=== PATIENT | female | born 1950 | race Caucasian/White ===

== ENCOUNTER → 2020-10-27 12:18 | Outpatient (CLI) | payer MEDICARE, BC, SELFPAY ==
--- NOTE | ~2020-10-27 | MM_ITS ---
EXAMINATION: MM screening [facility] BI w nacho HISTORY: Screening mammogram TECHNIQUE: Craniocaudal and mediolateral oblique 3-D tomosynthesis images were obtained and synthetic 2-D images were generated. CAD analysis was submitted and interpreted. COMPARISON: 05/26/2017, 01/06/1716, 01/15/2014 BREAST PARENCHYMAL COMPOSITION: The breasts are almost entirely fatty. FINDINGS: RIGHT BREAST: There is a mass in the middle third of the lower-outer breast 5 cm from the nipple. LEFT BREAST: There is no evidence of suspicious mass, calcification, or architectural distortion to s uggest malignancy. There has been no significant interval change. IMPRESSION: 1. Right breast mass. 2. Additional mammographic views and possible breast ultrasound are recommended. BI-RADS Category 0: Incomplete: Needs additional imaging evaluation. Reviewed, dictated and finalized at location A. IMPRESSION: 1. Right breast mass. 2. Additional mammographic views and possible breast ultrasound are recommended . BI-RADS Category 0: Incomplete: Needs additional imaging evaluation.
== END ==
PROVIDERS: PCP Internal Medicine; Visit Provider Internal Medicine
DX: Z12.31 Encounter for screening mammogram for malignant neoplasm of breast (principal); R92.8 Other abnormal and inconclusive findings on diagnostic imaging of breast
CPT/HCPCS: 77063; 77067

== ENCOUNTER → 2020-11-23 09:12 | Outpatient (CLI) | payer MEDICARE, BC, SELFPAY ==
--- NOTE | ~2020-11-23 | MMUS_ITS ---
EXAMINATION: MM diagnostic mammo unilat RT, US breast RT limited HISTORY: Right breast mass in middle third of lower outer breast 5 cm from nipple TECHNIQUE: Additional 3-D tomosynthesis images of the right breast were performed and synthetic 2-D i mages were generated. CAD analysis was submitted and interpreted. High resolution lower outer right b reast ultrasound was performed. COMPARISON: 10/27/2020, 05/26/2017, 01/13/2016 bilateral digital screening mammogram examinations FINDINGS: MAMMOGRAPHIC FINDINGS: A circumscribed up to 2.8 x 5.9 mm low-density opacity is noted at mid depth in the lower outer right breast. ULTRASOUND: 7:00 3 cm from nipple: There is a tubular sonolucency with circumscribed margins, without internal va scularity or suspicious shadowing. No suspicious mass or shadowing is detected in the lower outer right breast. IMPRESSION: 1. No mammographic evidence of malignancy 2. Routine mammographic screening is recommended. BI-RADS Category 2: Benign finding(s). Reviewed, dictated and finalized at location A. IMPRESSION: 1. No mammographic evidence of malignancy 2. Routine mammographic screening is recommended. BI-RADS Category 2: Benign finding(s).
== END ==
PROVIDERS: PCP Internal Medicine; Visit Provider Internal Medicine
DX: R92.8 Other abnormal and inconclusive findings on diagnostic imaging of breast (principal)
CPT/HCPCS: 76642; 77065

== ENCOUNTER → 2021-04-21 10:09 | Outpatient (CLI) | payer MEDICARE, BC, SELFPAY ==
--- NOTE | ~2021-04-21 | DEXA_ITS ---
Bone Density Report Name: Joseline Pratt Age: 71 Sex: Female Ethnicity: White Date of : 1950 Indication: postmenopausal osteoporosis; parental hip fracture; height loss; Referring Provider: DEVIN, BRI Guthrie Study: Bone densitometry was performed. Exam Date: April 21, 2021 Accession number: [id number] Bone Density: Region BMD T-score Z-score Classification AP Spine (L1-L4) 0.806 -2.2 -0.1 Osteopenia Femoral Neck (Left) 0.668 -1.6 0.1 Osteopenia Total Hip (Left) 0.879 -0.5 0.9 Normal Femoral Neck (Right) 0.659 -1.7 0.0 Osteopenia Total Hip (Right) 0.807 -1.1 0.4 Osteopenia Total Hip Mean 0.843 -0.8 0.7 Normal World Health Organization criteria for BMD impression classify patients as: Normal (T-score at or above -1.0), Osteopenia (T-score between -1.0 and -2.5), or Osteoporosis (T-score at or below -2.5). 10-year Fracture Risk(1): Major Osteoporotic Fracture 17% Hip Fracture 3.1% Reported Risk Factors: [place] (), Neck BMD=0.659, BMI=25.2, parental fracture (1) FRAX(R) Version 3.08. Fracture probability calculated for an untreated patient. Fracture probability may be lower if the patient has received treatment. Previous Exams: Region Exam Age BMD T-score BMD Change BMD Change Date g/cm2 vs Baseline vs Previous AP Spine(L1-L4) 04/21/2021 71 0.806 -2.2 -0.029* 0.089* 11/01/2018 68 0.717 -3.0 -0.118* -0.076* 01/13/2016 65 0.793 -2.3 -0.042* -0.001 01/01/2013 62 0.794 -2.3 -0.041* -0.027* 01/25/2010 59 0.820 -2.1 -0.015 0.006 01/25/2008 57 0.814 -2.1 -0.021 -0.021 01/18/2006 55 0.835 -1.9 Total Hip(Left) 04/21/2021 71 0.879 -0.5 -0.028* 0.007 11/01/2018 68 0.873 -0.6 -0.035* -0.029* 01/13/2016 65 0.902 -0.3 -0.006 -0.052* 01/01/2013 62 0.953 0.1 0.046* 0.116* 01/25/2010 59 0.837 -0.9 -0.070* -0.083* 01/25/2008 57 0.921 -0.2 0.013 0.013 01/18/2006 55 0.907 -0.3 Total Hip(Right) 04/21/2021 71 0.807 -1.1 -0.049* 0.032* 11/01/2018 68 0.776 -1.4 -0.081* -0.079* 01/13/2016 65 0.854 -0.7 -0.002 -0.036* 01/01/2013 62 0.891 -0.4 0.034* 0.085* 01/25/2010 59 0.805 -1.1 -0.051* -0.007 01/25/2008 57 0.813 -1.1 -0.043* -0.043* 01/18/2006 55 0.856 -0.7
== END ==
PROVIDERS: PCP Internal Medicine; Visit Provider Internal Medicine
DX: M81.0 Age-related osteoporosis without current pathological fracture (principal); M85.88 Other specified disorders of bone density and structure, other site; M85.851 Other specified disorders of bone density and structure, right thigh; M85.852 Other specified disorders of bone density and structure, left thigh
CPT/HCPCS: 77080

== ENCOUNTER → 2022-04-05 12:21 | Outpatient (CLI) | payer MEDICARE, BC, SELFPAY ==
--- NOTE | ~2022-04-05 | MM_ITS ---
EXAMINATION: MM screening [facility] BI w nacho HISTORY: Screening TECHNIQUE: Craniocaudal and mediolateral oblique 3-D tomosynthesis images were obtained and synthetic 2-D images were generated. CAD analysis was submitted and interpreted. COMPARISON: No prior mammogram is available for comparison at this institution. BREAST PARENCHYMAL COMPOSITION: Breast composed of scattered areas of fibroglandular density FINDINGS: There is no evidence of suspicious mass, calcification, or architectural distortion to sugg est malignancy in either breast. There has been no suspicious interval change. IMPRESSION: 1. No mammographic evidence of malignancy. 2. Recommend routine screening mammography in one year. BI-RADS Category 1: Negative Reviewed, dictated and finalized at location A.
== END ==
PROVIDERS: PCP Internal Medicine; Visit Provider Internal Medicine
DX: Z12.31 Encounter for screening mammogram for malignant neoplasm of breast (principal)
CPT/HCPCS: 77063; 77067

== ENCOUNTER 2024-08-07 13:29 | Outpatient (CLI) | payer BC, SELFPAY ==
--- NOTE | ~2024-08-07 | MM_ITS ---
EXAMINATION: MM screening [facility] BI w nacho HISTORY: Screening TECHNIQUE: Craniocaudal and mediolateral oblique 3-D tomosynthesis images were obtained and synthetic 2-D images were generated. CAD analysis was submitted and interpreted. COMPARISON: Comparison to multiple prior studies sequentially, with oldest reviewed study dated 01/12. BREAST PARENCHYMAL COMPOSITION: Not dense: There are scattered areas of fibroglandular density. FINDINGS: There is no evidence of suspicious mass, calcification, or architectural distortion to sugg est malignancy in either breast. There has been no suspicious interval change. IMPRESSION: 1. No mammographic evidence of malignancy. 2. Recommend routine screening mammography in one year. BI-RADS Category 1: Negative Reviewed, dictated and finalized at location B. S [employer]
== END 2024-08-07 13:30 | disposition home or self-care (01) ==
PROVIDERS: PCP Internal Medicine; Visit Provider Internal Medicine
DX: Z12.31 Encounter for screening mammogram for malignant neoplasm of breast (principal)
CPT/HCPCS: 77063; 77067

== ENCOUNTER 2025-02-19 09:41 | Outpatient (CLI) | payer MEDICARE, BC, SELFPAY ==
--- OUTSIDE RECORDS SUMMARY | 2010-01-04 03:30 | XMS_ITS | Continuity of Care Document ---
Author Organization [facility] Address [address] [place] [address] Phone Care Team Providers Care Drug Worker Name Role Phone Cleve Carl Unavailable Unavailable Procedures Procedure Date Eye Exam & Treatment Refraction Advance Directives Directive Yes / No Effective Date File Name No Information Encounters Encounter Description Practice Location Reason(s) For Visit Diagnoses Date Provider Providers Copied on Encounter [facility], [address] [place], [place], [id number], [place] tel:[phone] [facility] [place]note 2[place] No Information 0 Siddhartha Cleve. [address] [facility] [facility] [address], [place], [address], [place]. tel:[phone] Family History Family Member Type Diagnosis Age At Onset No Information Payers Payer name Insurance type Covered libertarian ID Authoriza tipito(s) [employer] BL [id number] Social History Type Description Quantity Date Captured Comments Sex Female Smoking Status No Information Chief Complaint And Reason For Visit No Information Reason For Referral Reason For Referral No Information History Of Present Illness Encounter Date Complaint History Of Prese nt Illness No Information Functional Status Date Functional Assessmen t No Information Instructions Date Instruction Additional Infor mation No Information Assessments Type Assessment Date No Information Patient Care Teams Name Effective Dates (start - stop) Status Members No Information
--- NOTE | ~2025-02-19 | DEXA_ITS ---
Bone Density Report Name: GIOVANNI AVALOS Age: 75 Sex: Female Ethnicity: White Date of : 1950 Indication: postmenopausal; screening for osteoporosis; parental hip fracture; height loss; Referring Provider: DEVIN, BRI Guthrie Study: Bone densitometry was performed. Exam Date: February 19, 2025 Accession number: [id number] Bone Density: Region BMD T-score Z-score Classification AP Spine(L1-L4) 0.758 -2.6 -0.3 Osteoporosis Femoral Neck (Left) 0.631 -2.0 0.0 Osteopenia Total Hip (Left) 0.871 -0.6 1.1 Normal Femoral Neck (Right) 0.627 -2.0 0.0 Osteopenia Total Hip (Right) 0.776 -1.4 0.3 Osteopenia Total Hip Mean 0.823 -1.0 0.7 Normal World Health Organization criteria for BMD impression classify patients as: Normal (T-score at or above -1.0), Osteopenia (T-score between -1.0 and -2.5), or Osteoporosis (T-score at or below -2.5). 10-year Fracture Risk: FRAX not reported because: Some T-score for Spine Total or Hip Total or Femoral Neck at or below -2.5 Treated for osteoporosis Clinical Information Provided by Patient: Parent has had a hip fracture Is being treated for osteoporosis Has used the following medications: Fosamax (i.e. alendronate), Calcium Patient maximum height was 63.0 Menopause Age: 52 No regular weight bearing exercise Does not regularly consume dairy products Drinks caffeinated beverages Onset of menses at age 14 Number of children 4 Impression: The patient has osteoporosis, based on the Total Spine T-score. The patient has risk factors, including: parental hip fracture. Discussion: It is important to ask patients whether they are taking their medications and to encourage continued and appropriate compliance with their osteoporosis therapies to reduce fracture risk. It is also important to review their risk factors and encourage appropriate calcium and vitamin D intakes, exercise, fall prevention and other lifestyle measures. Follow-Up: Consider a repeat BMD and Vertebral Fracture Assessment (VFA) exam in 2 years or sooner if medically necessary, to reassess this patient's status. Reported by: LOS on 02/19/2025 10:19:00 AM. Reviewed, dictated and finalized at location A.
--- OUTSIDE RECORDS SUMMARY | 2025-02-19 10:32 | XMS_ITS | Clinical Summary ---
Author Organization [facility] Address [address] [place] [address] Phone Care Team Providers Care Software Support Specialist Name Role Phone Unavailable Primary Care Provider Unavailabl e Social History Tobacco Use Types Packs/Day Years Used Date Smoking Tobacco: Never Assessed Comments Unknown Sex and Gender Information Value Date Recorded Sex Assigned at Not on file Legal Sex Female 11:45 AM CDT Gender Identity Not on file Sexual Orientation Not on file Plan of Treatment Not on file
== END 2025-02-19 09:42 | disposition home or self-care (01) ==
LOC: ANHFOHIMG 09:43
PROVIDERS: PCP Internal Medicine; Visit Provider Internal Medicine
DX: M81.0 Age-related osteoporosis without current pathological fracture (principal); M85.852 Other specified disorders of bone density and structure, left thigh; M85.851 Other specified disorders of bone density and structure, right thigh
CPT/HCPCS: 77080